=== PATIENT | male | born 1985 | race Caucasian/White ===

== ENCOUNTER 2017-04-15 05:58 | Observation (INO) | payer OTHER ==
--- NOTE | 2017-04-15 06:33 | ED ---
General Adult HPI - General Chief complaint: Shortness of Breath Stated complaint: Allergic Reaction Time Seen by Provider: 04/15/17 06:00 Source: patient, EMS, RN notes reviewed Mode of arrival: EMS Limitations: no limitations - History of Present Illness Initial comments: This is a 32-year-old male who presents emergency Department from [facility]. I was told that the patient had influenza A bronchospasms and a full body rash which she believes to be an ALLERGY. When I spoke to the patient he states that he's had itching all over his body for approximately 1 month and the rash 24 hours. They gave him steroids and some Pepcid at the other facility he states that that seemed to clear up the rash considerably but it's not completely gone. Patient states the rashes on his neck chest abdomen back and all 4 extremities. Patient stated it wasn't raised. There was diffusely erythematous. With a very lacy pattern. Patient states last few days he's been coughing and becoming more more short of breath. When they gave him breathing treatments at the other facility and steroids she seems to have improved his breathing considerably. Patient states currently he is feeling much better. - Related Data Allergies Allergy/AdvReac Type Severity Reaction Status Date / Time benztropine [From Cogentin] Allergy Confusion Verified 04/15/17 06:06 diphenhydramine Allergy Swelling Verified 04/15/17 06:06 [From Benadryl] codeine AdvReac Rash/Hives Verified 04/15/17 06:06 Review of Systems ROS Statement: Those systems with pertinent positive or pertinent negative responses have been documented in the HPI. ROS Other: All systems not noted in ROS Statement are negative. Past Medical History Additional Past Medical History / Comment(s): bludging disk History of Any Multi-Drug Resistant Organisms: None Reported Past Surgical History: No Surgical Hx Reported Smoking Status: Current every day smoker Past Alcohol Use History: None Reported Past Drug Use History: Marijuana General Exam - General Exam Comments Initial Comments: GENERAL: Patient is well-developed and well-nourished. Patient is nontoxic and well- hydrated and is in mild distress. ENT: Neck is soft and supple. No significant lymphadenopathy is noted. Oropharynx is clear. Moist mucous membranes. Neck has full range of motion without eliciting any pain. EYES: The sclera were anicteric and conjunctiva were pink and moist. Extraocular movements were intact and pupils were equal round and reactive to light. Eyelids were unremarkable. PULMONARY: Unlabored respirations. Good breath sounds bilaterally. No audible rales rhonchi or wheezing was noted. CARDIOVASCULAR: There is a regular rate and rhythm without any murmurs gallops or rubs. ABDOMEN: Soft and nontender with normal bowel sounds. SKIN: Lacy erythematous rash on his chest back arms and legs patient states it's much improved at this time NEUROLOGIC: Patient is alert and oriented x3. Cranial nerves II through XII are grossly intact. Motor and sensory are also intact. Normal speech, volume and content. Symmetrical smile. MUSCULOSKELETAL: Normal extremities with adequate strength and full range of motion. LYMPHATICS: No significant lymphadenopathy is noted PSYCHIATRIC: Normal psychiatric evaluation. Limitations: no limitations Course Vital Signs 04/15/17 06:01 Temperature 98.3 F Pulse Rate 103 H Respiratory 20 Rate Blood Pressure 128/64 O2 Sat by Pulse 94 L Oximetry Medical Decision Making - Medical Decision Making I reviewed the chest x-ray and saw no area of infiltrate. Disposition Clinical Impression: Bronchospasm, Pruritic erythematous rash, Influenza A Disposition: ADMITTED IP TO THIS HOSP Referrals: Antoine Castillo MD [Primary Care Provider] - 1-2 days Time of Disposition: 06:33
[2017-04-15] MEDS ORDERED: SODIUM CHLORIDE 0.9% 1,000 ML IV ONE (06:34)
[2017-04-15] MEDS ORDERED: IBUPROFEN 600 MG TAB PO PRN (08:11)
[2017-04-15] MEDS ORDERED: MELATONIN 3 MG TABLET PO PRN (09:30)
[2017-04-15] MEDS ORDERED: CALCIUM CARBONATE 500 MG CHEWABLE PO PRN (09:30)
[2017-04-15] MEDS ORDERED: ALPRAZolam 0.25 MG TAB PO PRN (09:30)
[2017-04-15] MEDS ORDERED: ONDANSETRON 4 MG/2 ML VIAL IVP PRN (09:30)
[2017-04-15] MEDS ORDERED: NALOXONE 0.4 MG/ML 1 ML VIAL IV PRN (09:30)
[2017-04-15] MEDS ORDERED: IBUPROFEN 400 MG TAB PO PRN (09:30)
[2017-04-15] MEDS ORDERED: ACETAMINOPHEN TAB 325 MG TAB PO PRN (09:30)
[2017-04-15] MEDS ORDERED: hydrOXYzine HCL 25 MG TAB PO PRN (09:32)
[2017-04-15] MEDS ORDERED: NICOTINE POLACRILEX 2 MG GUM BUCCAL PRN (09:36)
--- NOTE | 2017-04-15 09:37 | P.HPIM ---
History of Present Illness H&P Date: 04/15/17 Chief Complaint: itching Patient is a 32-year-old male with a significant past medical history of schizoaffective disorder and tobacco abuse who initially presented to the emergency department in [place] secondary to shortness of breath and a diffuse rash. There he was told he had influenza A and a bad rash. Apparently he was given steroids and Pepcid which seemed to help the rash. He underwent a chest x -ray which shows no acute process. He was transferred here for admission. Patient seen and examined at bedside. He states that he started having shortness of breath approximately one month ago. This has been associated with a nonproductive cough. He is also noted some chills but no fever. Yesterday he had he felt as though he would faint or pass out and he has been having intermittent palpitations. He also reports intermittent headaches which are unusual for him over the last month. He had noted a diffuse rash progressing over his body that started 2 days ago. He states that the rash was everywhere his chest, back, arms, legs, palms, and on his feet. He states it is itchy and was more red prior to steroids being given. He tried to take Benadryl for this but developed swelling mouth and tongue. He also complains of swelling in his feet. He has had some swelling in his hands and felt as though his hands were stiff and hard to move. He does work at a car wash. He denies any other recent exposures. He has not moved his house, he has not changed his carpeting , he has no new detergents/soaps/perfumes. He does not work with animals. He has not left the country recently. He has not gone camping. He does not have any new pets. He is also complaining of severe back pain. He states that he fell off a ladder last September and was taking the hospital in [place]. He does not remember whether he had x-rays done there but has not had a CAT scan. He has noticed a mass over his left flank and buttock area. He states the mass was diffusely tender and he sometimes gets radiation of pain into his upper back. The pain has been getting worse. He states initially the area started out as a small pimple-appearing lesion and has been progressively getting larger. He was having some prickling or pin feelings when he was urinating about 2 weeks ago. He states it was always at the end of his stream. He was seen in urgent care and they sent his urine for culture but he did not hear anything back. He denies any dysuria, foul-smelling urine, or dark urine. He has not had any diarrhea or constipation but has had fecal urgency. He denies any nausea or vomiting. He states his appetite has been good. He has not recently gotten any need tattoos. He adamantly denies any history of intravenous drug use. Review of Systems Pertinent positives and negatives as per HPI, remainder of 12 point review of systems is negative Past Medical History Additional Past Medical History / Comment(s): bludging disk, schizoaffective disorder History of Any Multi-Drug Resistant Organisms: None Reported Past Surgical History: No Surgical Hx Reported Smoking Status: Current every day smoker Past Alcohol Use History: None Reported Past Drug Use History: Marijuana - Past Family History Father Family Medical History: No Reported History Mother Family Medical History: No Reported History Additional Family Medical History / Comment(s): Maternal grandfather- [place] Medications and Allergies Home Medications Medication Instructions Recorded Confirmed Type Invega Sustenna Unknown Dose 1 injection IM Q30D 04/15/17 04/15/17 History Allergies Allergy/AdvReac Type Severity Reaction Status Date / Time benztropine [From Cogentin] Allergy Confusion Verified 04/15/17 07:08 diphenhydramine Allergy Swelling Verified 04/15/17 07:08 [From Benadryl] codeine AdvReac Rash/Hives Verified 04/15/17 07:08 Physical Exam Osteopathic Statement: *. No significant issues noted on an osteopathic structural exam other than those noted in the History and Physical/Consult. Vitals: Vital Signs Temp Pulse Pulse Resp BP BP Pulse Ox 04/15/17 08:54 96.9 F L 99 18 140/71 93 L 04/15/17 07:24 98.1 F 04/15/17 06:46 93 18 108/61 95 04/15/17 06:29 20 04/15/17 06:01 98.3 F 103 H 20 128/64 94 L Intake and Output 04/14/17 04/15/17 04/15/17 22:59 06:59 14:59 Other: Weight 122.47 kg General: Ill appearing, distress, obese, appears at stated age, Derm: No rash on abdomen, trunk with small macular lesions without scale and erythematous on lower trunk, both arms and legs are diffusely erythematous but not macular or papular, no palpable lesions, left home with multiple small macular areas no unusual rashes/lesions no unusual ecchymoses, warm, dry Head: atraumatic, normocephalic, symmetric Eyes: EOMI, no lid lag, anicteric sclera, pupils equal round reactive to light ENT: Nose and ears atraumatic, no thrush, no pharyngeal erythema Neck: No thyromegaly, no cervical lymphadenopathy, trachea midline, supple Mouth: no lip lesion, mucus membranes moist Cardiovascular: S1S2 reg, no murmur, positive posterior tibial pulse bilateral, no edema, capillary refill less than 2 seconds Lungs: Faint crackles bilateral bases , no accessory muscle use Abdominal: soft, nontender to palpation, no guarding, no appreciable organomegaly, normal bowel sounds Ext: no gross muscle atrophy, muscle strength 5 out of 5 in all 4 extremities grossly, no contractures, Neuro: CN II-XI grossly intact, light touch intact all 4 extremities, finger to nose within normal limits, intact rectal tone Psych: Alert, oriented, appropriate affect Results CBC & Chem 7: 04/15/17 09:46 04/15/17 09:46 Chest x-ray: report reviewed, image reviewed Thrombosis Risk Factor Assmnt - DVT/VTE Prophylaxis DVT/VTE Prophylaxis: Pharmacologic Prophylaxis ordered Assessment and Plan Assessment: Shortness of breath and joint pain associated with diffuse rash -Had ordered a stat CBC, CMP, and PT/INR. CRP markedly elevated at 40.9. -Admitted chest x-ray ordered and is within normal limits -Start on Solu-Medrol, Pepcid, Claritin, and Atarax -Check BETTY -Check CT chest and urinalysis. Additional rheumatologic testing may be warranted pending these results Lesion left posterior hip -Check CT abdomen and pelvis -Pain control Influenza A -Repeat influenza here as prior records are not available -Tamiflu Schizoaffective disorder -Invega Tobacco abuse -Cessation -Nicotine replacement Surrogate decision-maker: Girlfrienrivka Valdovinos [phone] CODE STATUS: Full code DVT prophylaxis: Lovenox Discussed with: Patient, RN Anticipated discharge: 2-[address]: Transfer vs home A total of 80 minutes was spent on the care of this complex patient more than 50 % of the time was spent in counseling and care coordination.
[2017-04-15 09:58] LABS: Basophils % (A) 0 %; Eosinophils # (A) 0.1 k/uL (0-0.7); Eosinophils % (A) 1 %; HCT 42.8 % (39.0-53.0); HGB 13.8 gm/dL (13.0-17.5); Lymphocytes # (A) 0.7 k/uL (1.0-4.8); Lymphocytes % (A) 5 %; MCH 30.8 pg (25.0-35.0); MCHC 32.3 g/dL (31.0-37.0); MCV 95.4 fL (80.0-100.0); Mean Platelet Volume 6.8; Monocytes # (A) 0.1 k/uL (0-1.0); Monocytes % (A) 1 %; Neutrophils # (A) 13.2 k/uL (1.3-7.7); Neutrophils % (A) 93 %; Platelet Count 456 k/uL (150-450); RBC 4.48 m/uL (4.30-5.90); RDW 12.8 % (11.5-15.5); WBC 14.2 k/uL (3.8-10.6)
[2017-04-15 10:01] LABS: INR 1.1 (<1.2); Prothrombin Time 10.8 sec (9.0-12.0)
[2017-04-15 10:11] VITALS: BMI 37.6
[2017-04-15 10:13] LABS: ALT 36 U/L (21-72); AST 29 U/L (17-59); Albumin 3.9 g/dL (3.5-5.0); Alkaline Phosphatase 58 U/L (38-126); Anion Gap 12 mmol/L; Blood Urea Nitrogen 17 mg/dL (9-20); C Reactive Protein 40.9 mg/L (<10.0); Calcium 9.5 mg/dL (8.4-10.2); Carbon Dioxide 23 mmol/L (22-30); Chloride 103 mmol/L (98-107); Glucose 194 mg/dL (74-99); LDH 531 U/L (313-618); Lipase 94 U/L (23-300); Phosphorus 3.3 mg/dL (2.5-4.5); Potassium 4.6 mmol/L (3.5-5.1); Sodium 138 mmol/L (137-145); Total Bilirubin 0.8 mg/dL (0.2-1.3); Total Protein 6.6 g/dL (6.3-8.2)
[2017-04-15] MEDS: HYDROcodone/APAP 5-325MG 1 EACH TAB PO PRN ×2 (10:39→17:59)
[2017-04-15] MEDS: OSELTAMIVIR 75 MG CAP PO SCH ×2 (10:39→20:56)
[2017-04-15] MEDS: LORATADINE 10 MG TAB PO SCH (10:40)
[2017-04-15] MEDS: SODIUM CHLORIDE 0.9% 1,000 ML IV SCH ×2 (10:40→17:45)
[2017-04-15] MEDS: FAMOTIDINE 20 MG/2 ML VIAL IV SCH ×2 (10:40→20:56)
[2017-04-15 11:24] LABS: Erythrocyte Sedimentation Rate 9 mm/hr (0-15)
--- NOTE | 2017-04-15 11:33 | XR ---
EXAMINATION TYPE: XR chest 1V portable DATE OF EXAM: 04/15/2017 COMPARISON: 04/15/2017 [facility] INDICATION: Shortness of breath flu TECHNIQUE: Single frontal view of the chest is obtained. FINDINGS: The heart size is normal. The pulmonary vasculature is normal. The lungs are clear. IMPRESSION: 1. No acute pulmonary process.
[2017-04-15] MEDS ORDERED: RX INFO: IV CONTRAST WAS GIVEN 1 EACH MISC MISCELLANE PRN (11:40)
--- NOTE | 2017-04-15 13:41 | CT ---
EXAMINATION TYPE: CT ChestAbdPelvis w con DATE OF EXAM: 04/15/2017 COMPARISON: NONE HISTORY: Left lower flank swelling and generalized pain CT DLP: 1966 mGycm Automated exposure control for dose reduction was used. CONTRAST: CT scan of the chest, abdomen and pelvis is performed without Oral Contrast and with IV Contrast, pat ient injected with 100 mL of Omnipaque 300. FINDINGS: The lungs are clear of infiltrate. There is no pleural effusion. There is no mediastinal adenopathy. There are calcified granulomata in the paratracheal region. There are no hilar masses. There is no pe ricardial effusion. Liver and spleen appear normal. Bile ducts are not dilated. Gallbladder appears normal. Pancreas appe ars normal. There is no adrenal mass. Kidneys show satisfactory contrast opacification. There is no hydronephrosi s. There is no retroperitoneal adenopathy. There is no ascites. Appendix appears normal. I see no int estinal wall thickening. There are no dilated loops. Bladder distends smoothly. There is no free flui d in the pelvis. There is no sign of a pelvic mass. The bony structures are intact. IMPRESSION: Negative CT scan of the chest abdomen and pelvis. I do not see a cause for flank pain.
[2017-04-15] MEDS: methylPREDNISolone SOD SUCCI 125 MG/2 ML VIAL IV SCH ×2 (13:52→18:08)
[2017-04-15] MEDS: MORPHINE ORAL SOLN 10 MG/5 ML CUP PO PRN ×2 (15:31→19:39)
[2017-04-15 17:40] LABS: Appearance,Urine Clear (Clear); Bilirubin,Urine Negative (Negative); Blood,Urine Negative (Negative); Color,Urine Yellow; Glucose,Urine (UA) Negative (Negative); Ketones,Urine Negative (Negative); Leukocyte Esterase,Urine Negative (Negative); Nitrite,Urine Negative (Negative); Protein,Urine Trace (Negative); Urobilinogen,Urine <2.0 mg/dL (<2.0)
[2017-04-15 18:07] LABS: Specific Gravity,Urine >1.035 (1.001-1.035)
[2017-04-16] MEDS: methylPREDNISolone SOD SUCCI 125 MG/2 ML VIAL IV SCH (01:00)
[2017-04-16] MEDS: SODIUM CHLORIDE 0.9% 1,000 ML IV SCH ×2 (03:37→11:20)
[2017-04-16] MEDS: MORPHINE ORAL SOLN 10 MG/5 ML CUP PO PRN ×3 (07:00→21:23)
[2017-04-16] MEDS: ENOXAPARIN 40 MG/0.4 ML SYRINGE SQ SCH (07:03)
[2017-04-16] MEDS: FAMOTIDINE 20 MG/2 ML VIAL IV SCH (07:03)
[2017-04-16] MEDS: OSELTAMIVIR 75 MG CAP PO SCH ×2 (07:04→20:04)
[2017-04-16] MEDS: predniSONE 20 MG TAB PO SCH (07:04)
[2017-04-16] MEDS: LORATADINE 10 MG TAB PO SCH (07:04)
[2017-04-16 07:37] LABS: Basophils % (A) 0 %; Eosinophils % (A) 0 %; HCT 38.9 % (39.0-53.0); HGB 12.1 gm/dL (13.0-17.5); Lymphocytes # (A) 1.3 k/uL (1.0-4.8); Lymphocytes % (A) 6 %; MCH 30.7 pg (25.0-35.0); MCHC 31.2 g/dL (31.0-37.0); MCV 98.4 fL (80.0-100.0); Mean Platelet Volume 7.2; Monocytes # (A) 0.9 k/uL (0-1.0); Monocytes % (A) 4 %; Neutrophils % (A) 89 %; Platelet Count 429 k/uL (150-450); RBC 3.95 m/uL (4.30-5.90); RDW 13.1 % (11.5-15.5); WBC 21.5 k/uL (3.8-10.6)
[2017-04-16 07:50] LABS: ALT 37 U/L (21-72); AST 16 U/L (17-59); Albumin 3.5 g/dL (3.5-5.0); Alkaline Phosphatase 51 U/L (38-126); Anion Gap 8 mmol/L; Blood Urea Nitrogen 17 mg/dL (9-20); Calcium 9.1 mg/dL (8.4-10.2); Carbon Dioxide 25 mmol/L (22-30); Chloride 108 mmol/L (98-107); Glucose 138 mg/dL (74-99); Potassium 4.8 mmol/L (3.5-5.1); Sodium 141 mmol/L (137-145); Total Bilirubin 0.3 mg/dL (0.2-1.3); Total Protein 6.1 g/dL (6.3-8.2)
[2017-04-16 08:27] VITALS: RESP 16
[2017-04-16] MEDS: IPRATROPIUM-ALBUTEROL 3 ML NEB INHALATION PRN ×3 (09:56→19:17)
[2017-04-16] MEDS: HYDROcodone/APAP 10-325MG 1 EACH TAB PO PRN ×3 (11:30→20:05)
--- NOTE | 2017-04-16 12:44 | US ---
EXAMINATION TYPE: US mass soft tissue chest/back DATE OF EXAM: 04/16/2017 COMPARISON: NONE CLINICAL HISTORY: right lumbar mass w tenderness, palpable. Area of right lower back, superior buttock at palpable scanned. Possible trace amount of fluid here, no other abnormality could be noted. IMPRESSION: No suspicious sonographic abnormality. No sonographic abnormality to correspond to the p atient's palpable abnormality. Trace amount of subcutaneous edema is noted.
[2017-04-16] MEDS: LEVOFLOXACIN 750 MG TAB PO SCH (14:51)
--- NOTE | 2017-04-16 14:55 | P.CONS ---
History of Present Illness - Reason for Consult Consult date: 04/16/17 Rash, shortness of breath, influenza A - History of Present Illness This is a 32-year-old male patient who gives history that he had onset of itching all over his body for about one month. He denies any change in any items at home such as tailer out, soaps or detergents. No recent change in his lifestyle or other exposures. Patient is on Invega since November 2016 and receives us once monthly. His last injection was on April 03 and previous to that sometime around March 03. Patient states he took Benadryl last week and it causes eyes, face and lips to puff out. This has resolved. Patient also complains of shortness of breath for one month. He states he had history of asthma as a child but has not recently had problems with that until the last month and has breathing status continues to worsen.. Patient presented to [facility] where he did test positive for influenza A on April 15 with leukocytosis of 20.3. He was given Solu-Medrol, nebulizer treatment, Pepcid and the rash was 80% gone and his itching was resolved. Patient was then transferred to [facility] emergency center. Patient is also concerned about a mass to the right lumbar/upper buttocks area that he's had since September. He states it has continued to increase in size and is very tender to touch. No wound and no drainage from the area. Patient did have a fall off a ladder in September and was treated in [place]. He underwent a CAT scan of the chest abdomen and pelvis that revealed no cause for flank pain. Chest x-ray was negative. Patient has been afebrile with initial white count of 14 and now 21.5, ESR 9, CRP 40.9, pro calcitonin was 0.11. Influenza testing as noted above is negative here for a MB BETTY is negative. Urinalysis is negative nitrate and leukoesterase, blood sugar 194. He is currently on Pepcid Atarax, Claritin, prednisone and Tamiflu. According to patient's nurse, his rash was much improved as well as yesterday he had no cough or shortness of breath. These above returned today and patient is very itchy especially to his abdomen and arms. He also complains of edema to his lower extremities and hands. Patient was seen 2 weeks ago at an urgent care clinic due to been feeling when he urinated at the end of his stream. He was not given any antibiotics at that time. He was provided with Robaxin for back pain. Patient also uses marijuana as needed for back pain. Case discussed with Dr. 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 Review of Systems All systems: negative Constitutional: Denies anorexia, Denies chills, Denies fever, Denies poor appetite, Denies sweats, Denies weight loss Eyes: denies blurred vision, denies pain Ears, nose, mouth and throat: Denies dental pain, Denies headache, Denies mouth pain, Denies sore throat, Denies vertigo Cardiovascular: Reports decreased exercise tolerance, Reports dyspnea on exertion, Reports edema, Reports leg edema, Denies chest pain, Denies lightheadedness, Denies shortness of breath, Denies syncope Respiratory: Reports cough, Reports dyspnea, Reports wheezing, Denies cough with sputum, Denies excessive sputum, Denies hemoptysis, Denies home oxygen Gastrointestinal: Denies abdominal pain, Denies diarrhea, Denies nausea, Denies vomiting Genitourinary: Denies dysuria Musculoskeletal: Denies myalgias Integumentary: Denies pruritus, Denies rash Neurological: Denies numbness, Denies weakness Psychiatric: Denies anxiety, Denies depression Endocrine: Denies fatigue, Denies weight change Past Medical History Additional Past Medical History / Comment(s): bludging disk, schizoaffective disorder History of Any Multi-Drug Resistant Organisms: None Reported Past Surgical History: No Surgical Hx Reported Smoking Status: Current every day smoker Past Alcohol Use History: None Reported Additional Past Alcohol Use History / Comment(s): Patient is a smoker of half a pack of cigarettes per day. He uses marijuana occasionally for back pain. He does not have any medical marijuana card. He denies any other street drug use. He denies any alcohol use. He lives with a girlfriend and cat. He works as a critical care rn. He has had no recent travel and no service. Past Drug Use History: Marijuana - Past Family History Father Family Medical History: No Reported History Mother Family Medical History: No Reported History Additional Family Medical History / Comment(s): Maternal grandfather- [place] Medications and Allergies Home Medications Medication Instructions Recorded Confirmed Type Paliperidone IM [Invega Sustenna] 234 mg IM Q30D 04/16/17 04/16/17 History Allergies Allergy/AdvReac Type Severity Reaction Status Date / Time benztropine [From Cogentin] Allergy Confusion Verified 04/15/17 07:08 diphenhydramine Allergy Swelling Verified 04/15/17 07:08 [From Benadryl] codeine AdvReac Rash/Hives Verified 04/15/17 07:08 Physical Exam Vitals: Vital Signs Temp Pulse Pulse Resp BP Pulse Ox 04/16/17 09:57 83 04/16/17 07:00 97.6 F 83 16 128/57 96 04/15/17 21:23 97.7 F 88 18 126/48 94 L 04/15/17 16:00 96 18 04/15/17 15:00 97.8 F 96 18 124/72 93 L Intake and Output 04/15/17 04/16/17 04/16/17 22:59 06:59 14:59 Other: Voiding Method Toilet Toilet # Voids 1 2 Weight 122.47 kg Gen: This is an obese 32-year-old male. Patient ambulated from the bathroom to his bed and gait is steady. He is known to have cough. No respiratory distress noted. HEENT: Head is atraumatic, normocephalic. Pupils equal, round. Sclerae is anicteric. Conjunctiva pink. Because members of the mouth are moist. Patient states that the lip swelling is back to normal. NECK: Supple. No JVD. No lymphadenopathy. No thyromegaly. LUNGS: A few crackles at bilateral bases. Occasional expiratory wheeze. No intercostal retractions. HEART: Regular rate and rhythm. No murmur. ABDOMEN: Obese. Soft. Bowel sounds are present. No masses. No tenderness. EXTREMITIES: 1+ pedal edema bilaterally. No calf tenderness. Dorsalis pedis + 2 bilaterally. NEUROLOGICAL: Patient is awake, alert and oriented x3. Cranial nerves 2 through 12 are grossly intact. Results Results: Laboratory Results WBC 21.5 k/uL (3.8-10.6) H 04/16/17 07:22 RBC 3.95 m/uL (4.30-5.90) L 04/16/17 07:22 Hgb 12.1 gm/dL (13.0-17.5) L 04/16/17 07:22 Hct 38.9 % (39.0-53.0) L 04/16/17 07:22 MCV 98.4 fL (80.0-100.0) 04/16/17 07:22 MCH 30.7 pg (25.0-35.0) 04/16/17 07:22 MCHC 31.2 g/dL (31.0-37.0) 04/16/17 07:22 RDW 13.1 % (11.5-15.5) 04/16/17 07:22 Plt Count 429 k/uL (150-450) 04/16/17 07:22 Neutrophils % 89 % 04/16/17 07:22 Lymphocytes % 6 % 04/16/17 07:22 Monocytes % 4 % 04/16/17 07:22 Eosinophils % 0 % 04/16/17 07:22 Basophils % 0 % 04/16/17 07:22 Neutrophils # 19.0 k/uL (1.3-7.7) H 04/16/17 07:22 Lymphocytes # 1.3 k/uL (1.0-4.8) 04/16/17 07:22 Monocytes # 0.9 k/uL (0-1.0) 04/16/17 07:22 Eosinophils # 0.0 k/uL (0-0.7) 04/16/17 07:22 Basophils # 0.0 k/uL (0-0.2) 04/16/17 07:22 ESR 9 mm/hr (0-15) 04/15/17 09:46 PT 10.8 sec (9.0-12.0) 04/15/17 09:46 INR 1.1 (<1.2) 04/15/17 09:46 Sodium 141 mmol/L (137-145) 04/16/17 07:22 Potassium 4.8 mmol/L (3.5-5.1) 04/16/17 07:22 Chloride 108 mmol/L (98-107) H 04/16/17 07:22 Carbon Dioxide 25 mmol/L (22-30) 04/16/17 07:22 Anion Gap 8 mmol/L 04/16/17 07:22 BUN 17 mg/dL (9-20) 04/16/17 07:22 Creatinine 0.72 mg/dL (0.66-1.25) 04/16/17 07:22 Est GFR (MDRD) Af Amer >60 (>60 ml/min/1.73 sqM) 04/16/17 07:22 Est GFR (MDRD) Non-Af >60 (>60 ml/min/1.73 sqM) 04/16/17 07:22 Glucose 138 mg/dL (74-99) H 04/16/17 07:22 Calcium 9.1 mg/dL (8.4-10.2) 04/16/17 07:22 Phosphorus 3.3 mg/dL (2.5-4.5) 04/15/17 09:46 Magnesium 2.0 mg/dL (1.6-2.3) 04/15/17 09:46 Total Bilirubin 0.3 mg/dL (0.2-1.3) 04/16/17 07:22 AST 16 U/L (17-59) L 04/16/17 07:22 ALT 37 U/L (21-72) 04/16/17 07:22 Alkaline Phosphatase 51 U/L (38-126) 04/16/17 07:22 Lactate Dehydrogenase 531 U/L (313-618) 04/15/17 09:46 C-Reactive Protein 40.9 mg/L (<10.0) H 04/15/17 09:46 Total Protein 6.1 g/dL (6.3-8.2) L 04/16/17 07:22 Albumin 3.5 g/dL (3.5-5.0) 04/16/17 07:22 Lipase 94 U/L (23-300) 04/15/17 09:46 Procalcitonin 0.11 ng/mL (0.02-0.09) H 04/15/17 09:46 Urine Color Yellow 04/15/17 16:30 Urine Appearance Clear (Clear) 04/15/17 16:30 Urine pH 7.0 (5.0-8.0) 04/15/17 16:30 Ur Specific [place] >1.035 (1.001-1.035) H 04/15/17 16:30 Urine Protein Trace (Negative) H 04/15/17 16:30 Urine Glucose (UA) Negative (Negative) 04/15/17 16:30 Urine Ketones Negative (Negative) 04/15/17 16:30 Urine Blood Negative (Negative) 04/15/17 16:30 Urine Nitrite Negative (Negative) 04/15/17 16:30 Urine Bilirubin Negative (Negative) 04/15/17 16:30 Urine Urobilinogen <2.0 mg/dL (<2.0) 04/15/17 16:30 Ur Leukocyte Esterase Negative (Negative) 04/15/17 16:30 BETTY Screen NEGATIVE (NEGATIVE) 04/15/17 09:46 Influenza Type A RNA Not Detected (Not Detectd) 04/15/17 15:20 Influenza Type B (PCR) Not Detected (Not Detectd) 04/15/17 15:20 CBC & Chem 7: 04/16/17 07:22 04/16/17 07:22 Labs: Abnormal Lab Results - Last 24 Hours (Table) 04/15/17 04/15/17 04/15/17 Range/Units 09:46 09:46 09:46 WBC 14.2 H (3.8-10.6) k/uL RBC (4.30-5.90) m/uL Hgb (13.0-17.5) gm/dL Hct (39.0-53.0) % Plt Count 456 H (150-450) k/uL Neutrophils # 13.2 H (1.3-7.7) k/uL Lymphocytes # 0.7 L (1.0-4.8) k/uL Chloride (98-107) mmol/L Glucose 194 H (74-99) mg/dL AST (17-59) U/L C-Reactive Protein 40.9 H (<10.0) mg/L Total Protein (6.3-8.2) g/dL Procalcitonin 0.11 H (0.02-0.09) ng/mL Ur Specific [place] (1.001-1.035) Urine Protein (Negative) 04/15/17 04/16/17 04/16/17 Range/Units 16:30 07:22 07:22 WBC 21.5 H (3.8-10.6) k/uL RBC 3.95 L (4.30-5.90) m/uL Hgb 12.1 L (13.0-17.5) gm/dL Hct 38.9 L (39.0-53.0) % Plt Count (150-450) k/uL Neutrophils # 19.0 H (1.3-7.7) k/uL Lymphocytes # (1.0-4.8) k/uL Chloride 108 H (98-107) mmol/L Glucose 138 H (74-99) mg/dL AST 16 L (17-59) U/L C-Reactive Protein (<10.0) mg/L Total Protein 6.1 L (6.3-8.2) g/dL Procalcitonin (0.02-0.09) ng/mL Ur Specific [place] >1.035 H (1.001-1.035) Urine Protein Trace H (Negative) Assessment and Plan Plan: This is a 32-year-old male patient who presented to the hospital with one month history of rash and shortness of breath that seems to be worsening. There's been no change in his immediate environment. 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 Patient also had ALLERGIC reaction to Benadryl last week. There is concern regarding influenza testing which was positive for A at [place] and has subsequently been negative at our facility on the following day. Patient also has a tender mass to the right lumbar back area for which ultrasound will be ordered to evaluate. Continue supportive care. Further recommendations as patient progresses. The above dictated assessment and findings were discussed with Dr. Krishann. The impression and plan of care have been directed as dictated. Kasie Medrano nurse practitioner acting as scribe for Dr. Krishnan.
--- NOTE | 2017-04-16 15:31 | P.CNPUL ---
History of Present Illness Consult date: 04/16/17 Reason for consult: dyspnea, cough Chief complaint: rash History of present illness: A 32-year-old male patient was referred from [facility] due to concern of respiratory distress, cough and congestion and suspected influenza A infection. The patient presented today hospital because of increased shortness of breath and cough that was nonproductive in nature. The patient apparently had some chills however there was no documented temperature. This was going on for the past few days and the same thing was having other constitutional symptoms including generalized weakness and fatigue and intermittent headaches and occasional palpitations and he subsequently developed a rash over the chest back and extremities there was somewhat pleuritic in nature. There was no vesicular formation. They did complain of some sore throat. Apparently her influenza screen was done at [facility] patient had a mild reaction to influenza A reagent, however the repeat study was done. [facility] and there was a screen came back negative for influenza A and B. The patient was placed on Tamiflu and steroids regards to the rash and the patient was admitted to the hospital. No travel history. No new drugs. No 70 ALLERGIC reactions. No angioedema. No tongue or neck swelling. The patient is currently afebrile hemodynamically stable. He continues to have a congested cough. No nausea. No vomiting. No diarrhea. No other complaints otherwise. No travel history. No 70 connected to disease disorder. CAT scan of the chest abdomen and pelvis was done that showed no acute abnormalities. He has a white cell count of 14.2 at time of admission this morning is up to 21.5. Rest of the blood work and electrolytes all within normal limits. Review of Systems Constitutional: Reports chills, Reports weakness Eyes: denies blurred vision, denies bulging eye, denies decreased vision Ears: deny: decreased hearing, ear discharge, earache Ears, nose, mouth and throat: Reports sore throat, Denies headache Cardiovascular: Reports dyspnea on exertion Respiratory: Reports cough, Reports dyspnea Gastrointestinal: Denies abdominal pain, Denies diarrhea, Denies nausea, Denies vomiting Musculoskeletal: Reports muscle weakness, Reports myalgias Musculoskeletal: absent: ankle pain, ankle stiffness, ankle swelling Integumentary: Reports pruritus, Reports rash Neurological: Reports headaches, Reports weakness Psychiatric: Denies anxiety, Denies depression Endocrine: Denies fatigue, Denies weight change Past Medical History Additional Past Medical History / Comment(s): bludging disk, schizoaffective disorder History of Any Multi-Drug Resistant Organisms: None Reported Past Surgical History: No Surgical Hx Reported Smoking Status: Current every day smoker Past Alcohol Use History: None Reported Additional Past Alcohol Use History / Comment(s): Patient is a smoker of half a pack of cigarettes per day. He uses marijuana occasionally for back pain. He does not have any medical marijuana card. He denies any other street drug use. He denies any alcohol use. He lives with a girlfriend and cat. He works as a salesperson used cars. He has had no recent travel and no service. Past Drug Use History: Marijuana - Past Family History Father Family Medical History: No Reported History Mother Family Medical History: No Reported History Additional Family Medical History / Comment(s): Maternal grandfather- MS Medications and Allergies Home Medications Medication Instructions Recorded Confirmed Type Paliperidone IM [Invega Sustenna] 234 mg IM Q30D 04/16/17 04/16/17 History Allergies Allergy/AdvReac Type Severity Reaction Status Date / Time benztropine [From Cogentin] Allergy Confusion Verified 04/15/17 07:08 diphenhydramine Allergy Swelling Verified 04/15/17 07:08 [From Benadryl] codeine AdvReac Rash/Hives Verified 04/15/17 07:08 Physical Exam Vitals: Vital Signs Temp Pulse Pulse Resp BP Pulse Ox 04/16/17 10:03 88 04/16/17 09:57 83 04/16/17 08:00 83 16 04/16/17 07:00 97.6 F 83 16 128/57 96 04/15/17 21:23 97.7 F 88 18 126/48 94 L 04/15/17 16:00 96 18 Intake and Output 04/16/17 04/16/17 04/16/17 06:59 14:59 22:59 Intake Total 1919 Balance 1919 Intake: Oral 1200 Blood Product 720 Other: Voiding Method Toilet Toilet # Voids 2 4 General: Ill appearing, distress, obese, appears at stated age, Derm: rash on abdomen, trunk with small macular lesions without scale and erythematous on lower trunk, both arms and legs are diffusely erythematous but not macular or papular, no palpable lesions, no vesicular lesions. No open wounds or sores. Head: atraumatic, normocephalic, symmetric Eyes: EOMI, no lid lag, anicteric sclera, pupils equal round reactive to light ENT: Nose and ears atraumatic, no thrush, no pharyngeal erythema Neck: No thyromegaly, no cervical lymphadenopathy, trachea midline, supple, the posterior oropharynx shows a inflamed erythematous right pharynx and tonsillar bed with purulent material covering the surface of the posterior pharynx most on the right. Mouth: no lip lesion, mucus membranes moist Cardiovascular: S1S2 reg, no murmur, positive posterior tibial pulse bilateral, no edema, capillary refill less than 2 seconds Lungs: Faint crackles bilateral bases , no accessory muscle use Abdominal: soft, nontender to palpation, no guarding, no appreciable organomegaly, normal bowel sounds Ext: no gross muscle atrophy, muscle strength 5 out of 5 in all 4 extremities grossly, no contractures, Neuro: CN II-XI grossly intact, light touch intact all 4 extremities, finger to nose within normal limits, intact rectal tone Psych: Alert, oriented, appropriate affect Results - Laboratory Findings CBC and BMP: 04/16/17 07:22 04/16/17 07:22 PT/INR, D-dimer PT 10.8 sec (9.0-12.0) 04/15/17 09:46 INR 1.1 (<1.2) 04/15/17 09:46 Abnormal lab findings: Abnormal Labs 04/15/17 04/15/17 04/15/17 09:46 09:46 09:46 WBC 14.2 H RBC Hgb Hct Plt Count 456 H Neutrophils # 13.2 H Lymphocytes # 0.7 L Chloride Glucose 194 H AST C-Reactive Protein 40.9 H Total Protein Procalcitonin 0.11 H Ur Specific [place] Urine Protein 04/15/17 04/16/17 04/16/17 16:30 07:22 07:22 WBC 21.5 H RBC 3.95 L Hgb 12.1 L Hct 38.9 L Plt Count Neutrophils # 19.0 H Lymphocytes # Chloride 108 H Glucose 138 H AST 16 L C-Reactive Protein Total Protein 6.1 L Procalcitonin Ur Specific [place] >1.035 H Urine Protein Trace H - Diagnostic Findings CT scan - chest: image reviewed Assessment and Plan Plan: Assessment 1 acute shortness of breath with a component of purulent pharyngitis/tonsillitis , especially on the right. Rule out streptococcal pharyngitis. Rule out viral infections including possibility of acute infectious mononucleosis with secondary/EBV infection. Otherwise is including influenza I felt to be less likely especially with a negative influenza screen. Influenza-like infections need to be considered. 2 Acute rash, likely a viral exanthem 3 schizoaffective disorder 4 smoking 5 lipoma in the back 6 acute leukocytosis Plan Check posterior oropharyngeal swab for strep. Send EBV titers for IgM and IgG. Add Levaquin orally. Prednisone taper. Continue bronchodilators. Continue rest of the treatment will continue to follow. The patient is also being hydrated with IV fluids in the form of normal saline at the rate of 120 mL an hour
--- NOTE | 2017-04-16 15:55 | P.PN ---
Subjective Progress Note Date: 04/16/17 (delayed documentation patient see at 10am) Principal diagnosis: rash Patient is a 32-year-old male with a significant past medical history of schizoaffective disorder and tobacco abuse who initially presented to the emergency department in [place] secondary to shortness of breath and a diffuse rash. There he was told he had influenza A and a bad rash. Apparently he was given steroids and Pepcid which seemed to help the rash. He underwent a chest x -ray which shows no acute process. He was transferred here for admission. On admission here he underwent repeat laboratory testing which showed an elevated white blood cell count and elevated platelets. His pro calcitonin was slightly elevated at 0.11. Repeat influenza was negative. CRP was elevated at 40.9. BETTY was negative. Urinalysis negative. He underwent a CT chest abdomen and pelvis which were unremarkable full despite having a palpable lump in his lower right back. He was maintained on IV steroids, Claritin, Pepcid, and Atarax secondary to a Benadryl ALLERGY. Infectious disease was consulted regarding his rash. On the morning after admission he was increasingly short of breath despite albuterol use. Pulmonary was consulted. Echocardiogram ordered. Patient seen and examined at bedside. He complains of increasing shortness of breath. He states his itching was better last night before bed but it is again worse. Of note he did start working at the [employer] on March. He began feeling short of breath slightly after. He denies any new, colds or exposures at the [employer]. He states they've been using the same, cold since he started. 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 He denies any overt chemical exposures. Objective - Vital Signs Vital signs: Vital Signs Temp 97.6 F 04/16/17 07:00 Pulse 82 04/16/17 15:25 Resp 16 04/16/17 08:00 BP 128/57 04/16/17 07:00 Pulse Ox 96 04/16/17 07:00 Intake & Output 04/15/17 04/16/17 04/16/17 18:59 06:59 18:59 Intake Total 2160 1920 Balance 2160 1920 Weight 122.47 kg Intake: Intake, IV Titration 720 Amount Sodium Chloride 0.9% 1, 720 000 ml @ 120 mls/hr IV . Q8H20M [facility] Rx#:[id number] Oral 1440 1200 Blood Product 720 Other: Voiding Method Toilet Toilet Toilet # Voids 4 2 4 - Exam General: Ill-appearing, moderate distress, appears at stated age, obesity Derm: warm, dry, diffusely erythematous rash over arms and legs. Macular rash over posterior back. The maculopapular rash with central clearing on his bilateral palms has cleared significantly. Head: atraumatic, normocephalic, symmetric Eyes: EOMI, no lid lag, anicteric sclera Mouth: no lip lesion, mucus membranes moist Cardiovascular: S1S2 reg, no murmur, positive posterior tibial pulse bilateral, Lungs: CTA bilateral, no rhonchi, no rales , no accessory muscle use Abdominal: soft, nontender to palpation, no guarding, no appreciable organomegaly Ext: no gross muscle atrophy, no edema, no contractures Neuro: CN II-XI grossly intact, no focal neuro deficits Psych: Alert, oriented, appropriate affect - Labs CBC & Chem 7: 04/16/17 07:22 04/16/17 07:22 Labs: Abnormal Lab Results - Last 24 Hours (Table) 04/15/17 04/15/17 04/16/17 Range/Units 09:46 16:30 07:22 WBC 21.5 H (3.8-10.6) k/uL RBC 3.95 L (4.30-5.90) m/uL Hgb 12.1 L (13.0-17.5) gm/dL Hct 38.9 L (39.0-53.0) % Neutrophils # 19.0 H (1.3-7.7) k/uL Chloride (98-107) mmol/L Glucose (74-99) mg/dL AST (17-59) U/L Total Protein (6.3-8.2) g/dL Procalcitonin 0.11 H (0.02-0.09) ng/mL Ur Specific [place] >1.035 H (1.001-1.035) Urine Protein Trace H (Negative) 04/16/17 Range/Units 07:22 WBC (3.8-10.6) k/uL RBC (4.30-5.90) m/uL Hgb (13.0-17.5) gm/dL Hct (39.0-53.0) % Neutrophils # (1.3-7.7) k/uL Chloride 108 H (98-107) mmol/L Glucose 138 H (74-99) mg/dL AST 16 L (17-59) U/L Total Protein 6.1 L (6.3-8.2) g/dL Procalcitonin (0.02-0.09) ng/mL Ur Specific [place] (1.001-1.035) Urine Protein (Negative) Assessment and Plan Assessment: Shortness of breath and joint pain associated with diffuse rash -Viral exanthem versus allergen exposure versus other - CRP markedly elevated at 40.9. -CT chest, abdomen, pelvis all within normal limits -Check echocardiogram -Admitted chest x-ray ordered and is within normal limits -Continue Solu-Medrol, Pepcid, Claritin, and Atarax -BETTY negative -Pulmonary recs appreciated - bronchodilators, [facility] -Await infectious disease recommendations [place] left posterior hip -No abnormalities noted on CT -No mass noted on CT, ultrasound ordered by infectious disease -Pain control Influenza A - negative on repeat, await infectious disease input to determine if Tamiflu still indicated -Tamiflu Schizoaffective disorder -Invega Tobacco abuse -Cessation -Nicotine replacement Surrogate decision-maker: Girlfrienrivka Valdovinos [phone] CODE STATUS: Full code DVT prophylaxis: Lovenox Discussed with: Patient, RN Anticipated discharge: [address]: Transfer vs home A total of 25 minutes was spent on the care of this complex patient more than 50 % of the time was spent in counseling and care coordination.
--- NOTE | 2017-04-16 19:53 | ECHOF ---
Referral Reason:shortness of breath MEASUREMENTS -------- HEIGHT: 180.3 cm WEIGHT: 122.5 kg BP: 128/57 RVIDd: 3.5 cm (< 3.3) IVSd: 1.2 cm (0.6 - 1.1) LVIDd: 5.4 cm (3.9 - 5.3) LVPWd: 1.1 cm (0.6 - 1.1) IVSs: 1.2 cm LVIDs: 3.4 cm LVPWs: 1.4 cm LA Diam: 4.3 cm (2.7 - 3.8) LAESV Index (A-L): 17.86 ml/m Ao Diam: 2.5 cm (2.0 - 3.7) AV Cusp: 2.3 cm (1.5 - 2.6) LA Diam: 4.5 cm (2.7 - 3.8) MV E Norman: 1.14 m/s MV DecT: 261 ms MV A Norman: 0.85 m/s MV E/A Ratio: 1.34 AV maxP.49 mmHg AV meanP.97 mmHg RAP: 5.00 mmHg RVSP: 27.01 mmHg FINDINGS -------- Sinus rhythm. This was a technically adequate study. The left ventricular size is normal. There is mild concentric left ventricular hypertrophy. Overa ll left ventricular systolic function is normal with, an EF between 55 - 60 %. The right ventricle is normal in size and function. The right ventricle is mildly enlarged. Normal LA size by volume 22+/-6 ml/m2. The right atrium is normal in size. The aortic valve is trileaflet, and appears structurally normal. No aortic stenosis or regurgitation. The mitral valve is normal. There is trace mitral regurgitation. Trace tricuspid regurgitation present. Right ventricular systolic pressure is normal at < 35 mmHg. There is no evidence of pulmonary hypertension. The pulmonic valve is normal. The aortic root size is normal. Normal inferior vena cava with normal inspiratory collapse consistent with estimated right atrial pre ssure of 5 mmHg. The pericardium is normal. There is no pericardial effusion. CONCLUSIONS -------- 1. Sinus rhythm. 2. This was a technically adequate study. 3. The left ventricular size is normal. 4. There is mild concentric left ventricular hypertrophy. 5. Overall left ventricular systolic function is normal with, an EF between 55 - 60 %. 6. The right ventricle is mildly enlarged. 7. Normal LA size by volume 22+/-6 ml/m2. 8. The aortic valve is trileaflet, and appears structurally normal. No aortic stenosis or regurgitati on. 9. There is trace mitral regurgitation. 10. Trace tricuspid regurgitation present. 11. Right ventricular systolic pressure is normal at < 35 mmHg. 12. There is no evidence of pulmonary hypertension. 13. The aortic root size is normal. 14. There is no pericardial effusion. WEEDER: Preston Toure RDCS
[2017-04-16] MEDS: FAMOTIDINE 20 MG TAB PO SCH (20:05)
[2017-04-16] MEDS ORDERED: MENTHOL-CAMPHOR LOTION 222 APPLIC/222 ML BOTTLE TOPICAL PRN (21:01)
--- NOTE | 2017-04-16 21:11 | P.CON ---
Consult Note - . Consult date: 04/16/17 Assessment/Plan:: This is a 32-year-old male patient who gives history that he had onset of itching all over his body for about one month. He denies any change in any items at home such as property adjuster, soaps or detergents. No recent change in his lifestyle or other exposures. Patient is on Invega since November 2016 and receives us once monthly. His last injection was on April 03 and previous to that sometime around March 03. Patient states he took Benadryl last week and it causes eyes, face and lips to puff out. This has resolved. Patient also complains of shortness of breath for one month. He states he had history of asthma as a child but has not recently had problems with that until the last month and has breathing status continues to worsen.. Patient presented to [facility] where he did test positive for influenza A on April 15 with leukocytosis of 20.3. He was given Solu-Medrol, nebulizer treatment, Pepcid and the rash was 80% gone and his itching was resolved. Patient was then transferred to [facility] emergency center. Patient is also concerned about a mass to the right lumbar/upper buttocks area that he's had since September. He states it has continued to increase in size and is very tender to touch. No wound and no drainage from the area. Patient did have a fall off a ladder in September and was treated in [place]. He underwent a CAT scan of the chest abdomen and pelvis that revealed no cause for flank pain. Chest x-ray was negative. Patient has been afebrile with initial white count of 14 and now 21.5, ESR 9, CRP 40.9, pro calcitonin was 0.11. Influenza testing as noted above is negative here for a MB BETTY is negative. Urinalysis is negative nitrate and leukoesterase, blood sugar 194. He is currently on Pepcid Atarax, Claritin, prednisone and Tamiflu. According to patient's nurse, his rash was much improved as well as yesterday he had no cough or shortness of breath. These above returned today and patient is very itchy especially to his abdomen and arms. He also complains of edema to his lower extremities and hands. Patient was seen 2 weeks ago at an urgent care clinic due to been feeling when he urinated at the end of his stream. He was not given any antibiotics at that time. He was provided with Robaxin for back pain. Patient also uses marijuana as needed for back pain. Case discussed with Dr. 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 Please see the consult note as dictated by nurse practitioner Mrs. Kasie Medrano. Pleasant gentleman because of history of underlying schizophrenia is receiving court ordered injectable antipsychotic Invega days been receiving for the last 4 months. The patient relates over the last month he's had difficulty with worsening itching Is also having some difficulty with some limb movements that are spontaneous. It is highly likely the patient influenza and the negative testing is possible because of the initiation of antiviral therapy. The positive predictive value of influenza testing is strong, the negative predictive value is weak, possibly a positive test results in a high likelihood of infection. Would complete his course of Tamiflu. The patient's symptoms were present before Tamiflu and is not likely the etiology. He was given Robaxin in the outpatient setting which may be causing some worsening of the side effects of his antipsychotic. Sarna will be given to help with this topical itch. He is also receiving Atarax and Claritin with hopes to improve his current symptoms. Unless there is evidence of pneumonia or other bacterial infection would limit oral antibiotic therapy. Since the patient has had itching for many weeks it is not likely directly related to his current viral infection which is influenza could be exacerbated by. I agree with evaluation, assessment and plan as dictated by nurse practitioner Mrs. Kasie Medrano.
[2017-04-17 05:39] LABS: EBV - EA (IgG) <5.0 U/mL (<9.0); EBV - VCA IgM <10.0 U/mL (<36.0)
[2017-04-17] MEDS: HYDROcodone/APAP 10-325MG 1 EACH TAB PO PRN ×3 (05:45→14:59)
[2017-04-17] MEDS: IPRATROPIUM-ALBUTEROL 3 ML NEB INHALATION PRN ×2 (06:19→12:33)
[2017-04-17 07:32] LABS: HCT 36.4 % (39.0-53.0); HGB 12.1 gm/dL (13.0-17.5); MCH 31.5 pg (25.0-35.0); MCHC 33.3 g/dL (31.0-37.0); MCV 94.8 fL (80.0-100.0); Mean Platelet Volume 7.1; Platelet Count 439 k/uL (150-450); RBC 3.84 m/uL (4.30-5.90); RDW 13.1 % (11.5-15.5); WBC 23.3 k/uL (3.8-10.6)
[2017-04-17] MEDS: MORPHINE ORAL SOLN 10 MG/5 ML CUP PO PRN (07:43)
[2017-04-17] MEDS: ENOXAPARIN 40 MG/0.4 ML SYRINGE SQ SCH (07:44)
[2017-04-17] MEDS: FAMOTIDINE 20 MG TAB PO SCH (07:44)
[2017-04-17] MEDS: LORATADINE 10 MG TAB PO SCH (07:45)
[2017-04-17] MEDS: OSELTAMIVIR 75 MG CAP PO SCH (07:45)
[2017-04-17] MEDS: predniSONE 20 MG TAB PO SCH (07:45)
[2017-04-17 08:00] LABS: Anion Gap 10 mmol/L; Blood Urea Nitrogen 17 mg/dL (9-20); Calcium 8.7 mg/dL (8.4-10.2); Carbon Dioxide 27 mmol/L (22-30); Chloride 106 mmol/L (98-107); Glucose 98 mg/dL (74-99); Potassium 4.4 mmol/L (3.5-5.1); Sodium 143 mmol/L (137-145)
[2017-04-17 08:24] VITALS: BP 141/76; TEMP 97.2
--- NOTE | 2017-04-17 10:50 | P.PN ---
Progress Note - Text Interval Note: Anticipate home today. Rx sent in to [facility]. Awaiting to see if we can coordinate an appointment with [employer] Manager in the outpatient setting. Jazmín Villaseñor, DO
[2017-04-17] MEDS: LEVOFLOXACIN 750 MG TAB PO SCH (10:53)
--- NOTE | 2017-04-17 11:16 | P.DS ---
Providers Date of admission: 04/15/17 06:36 Expected date of discharge: 04/17/17 Attending physician: Marv Nicole MD Consults: 04/15/17 16:00 Consult Physician Routine Consulting Provider: David Krishnan Consult Reason/Comments: rash, shortness of breath, Flu A + Do you want consulting provider notified?: Yes, Notify in am 04/16/17 11:06 Consult Physician Routine Consulting Provider: Abundio Krishna Consult Reason/Comments: shortness of breath Do you want consulting provider notified?: Yes Primary care physician: Antoine Castillo MD - Discharge Diagnosis(es) (1) Pruritic erythematous rash Current Visit: Yes Status: Acute (2) Allergic dermatitis Current Visit: Yes Status: Acute (3) Acute asthma exacerbation Current Visit: Yes Status: Acute (4) Influenza A Current Visit: Yes Status: Acute Hospital Course: Patient is a 32-year-old male with a significant past medical history of schizoaffective disorder and tobacco abuse who initially presented to the emergency department in [place] secondary to shortness of breath and a diffuse rash. There he was told he had influenza A and a bad rash. Apparently he was given steroids and Pepcid which seemed to help the rash. He underwent a chest x -ray which shows no acute process. He was transferred here for admission. On admission here he underwent repeat laboratory testing which showed an elevated white blood cell count and elevated platelets. His pro calcitonin was slightly elevated at 0.11. Repeat influenza was negative, Infectious disease felt this was due to partial treatment. CRP was elevated at 40.9. BETTY was negative. Urinalysis negative. He underwent a CT chest abdomen and pelvis which were unremarkable full despite having a palpable lump in his lower right back. He was maintained on IV steroids, Claritin, Pepcid, and Atarax secondary to a Benadryl ALLERGY. Infectious disease was consulted regarding his rash and was concerned that it was due to exposure to allergen but did not think it was related to a virus. Pulmonary was concerned about possible strep vs EBV. He was started on Levaquin for possible strep this was stopped when rapid strep was negative. Strep Culture is pending. He also underwent ECHO which was normal. We also ultrasounded palpable mass on his lumbar spine which all appear to be normal tissue. He was determined that he was stable for discharge as his rash and shortenss of breath are improving. Recommended that he follow up with an aspnet developer did try to make an appointment for him however they did not take his insurance. The allergy office referred him to [facility] as they do not screen for chemical exposures. He will also follow with Dr. Krishna in the office. Patient seen and examined at bedside. Still having a little bit of wheezing but overall has felt like his shortness of breath improved. Did have one episode of shortness of breath at around 6 AM. No nausea or vomiting. Rash is improving and itching is getting better with cream. Discussed with him the need to follow-up with an aspnet developer. He states he has no ride other than Medicaid ride. He will attempt to coordinate this as they need for 72 hour notice before this provider ride. He understands that we have done all testing necessary in the hospital but that this condition still needs to be followed up as an outpatient. was pulled up on this patient has not had any controlled substances prescribed and greater than 6 months. Secondary to his back pain he will be given a prescription for 28 tablets of [place] Vital signs reviewed and stable. General: non toxic, no distress, appears at stated age Derm: warm, dry, diffusely erythematous skin is improving Head: atraumatic, normocephalic, symmetric Eyes: EOMI, no lid lag, anicteric sclera Mouth: no lip lesion, mucus membranes moist Cardiovascular: S1S2 reg, no murmur, positive posterior tibial pulse bilateral, Lungs: Lungs are clear bilateral bases, there is a forced upper airway wheeze no accessory muscle use Abdominal: soft, nontender to palpation, no guarding, no appreciable organomegaly Ext: no gross muscle atrophy, no edema, no contractures Neuro: CN II-XI grossly intact, no focal neuro deficits Psych: Alert, oriented, appropriate affect A total of 25 minutes of time were spent preparing this complex discharge summary . Plan - Discharge Summary Discharge Rx Participant: Yes New Discharge Prescriptions: New Famotidine [Pepcid] 20 mg PO Q12HR #30 tab HYDROcodone/APAP 10-325MG [[place] 10-325] 1 each PO Q4H PRN #28 tab PRN Reason: Moderate Pain Loratadine [Claritin] 10 mg PO DAILY #30 tab Menthol-Camphor Lotion [Sarna Lotion 0.5%-0.5%] 1 applic TOPICAL QID PRN #0 ml PRN Reason: Itching Oseltamivir [Tamiflu] 75 mg PO Q12HR #4 cap predniSONE 60 mg PO DAILY #15 tab Continue Paliperidone IM [Invega Sustenna] 234 mg IM Q30D Discharge Medication List Paliperidone IM [Invega Sustenna] 234 mg IM Q30D 04/16/17 [History] Famotidine [Pepcid] 20 mg PO Q12HR #30 tab 04/17/17 [Rx] HYDROcodone/APAP 10-325MG [[place] 10-325] 1 each PO Q4H PRN #28 tab 04/17/17 [Rx] Loratadine [Claritin] 10 mg PO DAILY #30 tab 04/17/17 [Rx] Menthol-Camphor Lotion [Sarna Lotion 0.5%-0.5%] 1 applic TOPICAL QID PRN #0 ml 04/17/17 [Rx] Oseltamivir [Tamiflu] 75 mg PO Q12HR #4 cap 04/17/17 [Rx] predniSONE 60 mg PO DAILY #15 tab 04/17/17 [Rx] Follow up Appointment(s)/Referral(s): Antoine Castillo MD [Primary Care Provider] - 1-2 days Activity/Diet/Wound Care/Special Instructions: pt to call either: [facility] for appt with an aspnet developer Pending Studies Pending Results: strep culture
--- NOTE | 2017-04-17 12:14 | P.PN ---
Subjective Progress Note Date: 04/17/17 On today's evaluation of 04/17/2017 the patient is feeling better. He is less short of breath. The pharyngeal pustular area has cleared. Strep screen of the throat came back negative. EBV titers were positive for IgG and negative for IgM. Influenza screen was negative. ID thinks that the patient may still have an underlying influenza infection knowing that the test is not absolute based on sensitivity and predictive values. The patient is on a combination of Levaquin, prednisone burst taper and Tamiflu. The rash has subsided. He is ambulating. No altered mentation. No sore throat. No cough or sputum production. Objective - Vital Signs Vital signs: Vital Signs Temp 97.2 F L 04/17/17 07:00 Pulse 93 04/17/17 07:00 Resp 16 04/17/17 07:51 BP 141/76 04/17/17 07:00 Pulse Ox 97 04/17/17 07:00 Intake & Output 04/16/17 04/17/17 04/17/17 18:59 06:59 18:59 Intake Total 1920 Balance 1920 Weight 122.47 kg Intake: Oral 1200 Blood Product 720 Other: Voiding Method Toilet Toilet Toilet # Voids 4 1 1 - Exam General: Ill appearing, distress, obese, appears at stated age, Derm: rash on abdomen, trunk with small macular lesions without scale and erythematous on lower trunk, both arms and legs are diffusely erythematous but not macular or papular, no palpable lesions, no vesicular lesions. No open wounds or sores. Head: atraumatic, normocephalic, symmetric Eyes: EOMI, no lid lag, anicteric sclera, pupils equal round reactive to light ENT: Nose and ears atraumatic, no thrush, no pharyngeal erythema Neck: No thyromegaly, no cervical lymphadenopathy, trachea midline, supple, the posterior oropharynx shows a inflamed erythematous right pharynx and tonsillar bed Mouth: no lip lesion, mucus membranes moist Cardiovascular: S1S2 reg, no murmur, positive posterior tibial pulse bilateral, no edema, capillary refill less than 2 seconds Lungs: Faint crackles bilateral bases , no accessory muscle use Abdominal: soft, nontender to palpation, no guarding, no appreciable organomegaly, normal bowel sounds Ext: no gross muscle atrophy, muscle strength 5 out of 5 in all 4 extremities grossly, no contractures, Neuro: CN II-XI grossly intact, light touch intact all 4 extremities, finger to nose within normal limits, intact rectal tone Psych: Alert, oriented, appropriate affect - Labs CBC & Chem 7: 04/17/17 06:57 04/17/17 06:57 Labs: Abnormal Lab Results - Last 24 Hours (Table) 04/16/17 04/17/17 Range/Units 07:30 06:57 WBC 23.3 H (3.8-10.6) k/uL RBC 3.84 L (4.30-5.90) m/uL Hgb 12.1 L (13.0-17.5) gm/dL Hct 36.4 L (39.0-53.0) % EBV Capsid Ag IgG Ab 89.7 H (<18.0) U/mL EBV Nuclear Ag IgG Ab 38.5 H (<18.0) U/mL Microbiology - Last 24 Hours (Table) 04/16/17 13:55 Group A Strep Throat Culture - Preliminary Throat Assessment and Plan Plan: Assessment 1 acute shortness of breath with a component of purulent pharyngitis/tonsillitis , especially on the right. Rule out streptococcal pharyngitis. Rule out viral infections including possibility of acute infectious mononucleosis with secondary/EBV infection. Otherwise is including influenza I felt to be less likely especially with a negative influenza screen. Influenza-like infections need to be considered. 2 Acute rash, likely a viral exanthem 3 schizoaffective disorder 4 smoking 5 lipoma in the back 6 acute leukocytosis Plan The patient rash has subsided. Brester status is also improved. We'll discharge patient home on a course of Tamiflu and prednisone taper addition to Claritin. Outpatient follow-up. May need a pro-air rescue inhaler to be is also on as-needed basis. Clear for discharge from my standpoint.
[2017-04-17 12:48] VITALS: PULSE 80
== END 2017-04-17 17:10 | disposition home or self-care (01) ==
LOC: EC 05:58 → 5MS5E 06:36
PROVIDERS: ADMIT Internal Medicine; ATTEND Internal Medicine
DX: L29.9 Pruritus, unspecified (principal); L23.9 Allergic contact dermatitis, unspecified cause; J45.901 Unspecified asthma with (acute) exacerbation; J10.1 Influenza due to other identified influenza virus with other respiratory manifestations; F25.9 Schizoaffective disorder, unspecified; F17.210 Nicotine dependence, cigarettes, uncomplicated; R79.82 Elevated C-reactive protein (CRP); D17.1 Benign lipomatous neoplasm of skin and subcutaneous tissue of trunk; R00.2 Palpitations; D72.829 Elevated white blood cell count, unspecified; M79.89 Other specified soft tissue disorders; R60.9 Edema, unspecified; M54.9 Dorsalgia, unspecified; R15.2 Fecal urgency; T45.0X5A Adverse effect of antiallergic and antiemetic drugs, initial encounter; E66.9 Obesity, unspecified; Z68.37 Body mass index [BMI] 37.0-37.9, adult; Z79.899 Other long term (current) drug therapy; Z88.5 Allergy status to narcotic agent; Z88.8 Allergy status to other drugs, medicaments and biological substances
CPT/HCPCS: 96361 ×4; 99285 ×2; 96376 ×2; 96372 ×2; 96374; 96375; 94640 ×4; 93306; 86665 ×2; 80053 ×2; 80048; 85652; 86663; 86664; 83615; 83690; 83735; 84100; 85025 ×2; 85027; 85610; 86140; 81003; 86038; 87081; 87430; 87502; 84145; 71045; 76604; 71260; 74177; G0378 ×3; J2930 ×2; J1650 ×2; Q9967; J7512 ×2

== ENCOUNTER → 2021-11-16 | Outpatient (CLI) | payer MEDICARE, OTHER ==
--- NOTE | 2021-11-17 05:31 | MR ---
EXAMINATION TYPE: MR abdomen wo/w con DATE OF EXAM: 11/16/2021 COMPARISON: None HISTORY: Cirrhosis CONTRAST: Standard multiplanar, multisequence MRI departmental protocol images were obtained without contrast a nd with 15.5 mL intravenous gadolinium contrast. Liver has normal size and contour. Spleen is intact. No evidence of pancreatic mass. Pancreatic duct appears normal. Gallbladder appears normal. The stomach is intact. No adrenal mass. Kidneys have normal size. No hydronephrosis. There is no ascites. No sign of retrope ritoneal adenopathy. There is 2 cm oval-shaped lesion in the posterior right lobe of the liver. This has increased signal on T2 images and shows delayed nodular enhancement. This is diagnostic of florina ioma. There is normal enhancement of the portal venous system. No ascites. No evidence of mesenteric edema. No evidence of a bowel obstruction. IMPRESSION: Hemangioma in the posterior right lobe of the liver. I do not see evidence for hepatic cirrhosis. No dilated ducts.
== END | disposition home or self-care (01) ==
LOC: RADMRIMAIN 14:52
PROVIDERS: ATTEND Student in an Organized Health Care Education/Training Program
DX: K76.89 Other specified diseases of liver (principal)
CPT/HCPCS: 74183; A9585